=== PATIENT | male | born 1935 | race Caucasian/White ===

== ENCOUNTER → 2018-02-13 | Outpatient (REF) | payer MEDICARE ==
[2018-02-13 18:29] LABS: FOLATE 7.9 NG/ML; VITAMIN B12 LEVEL 1087 PG/ML
[2018-02-16 14:35] LABS: Methylmalonic Acid 154 nmol/L (0-378)
== END ==
LOC: M LAB REF 18:02
DX: D51.9 Vitamin B12 deficiency anemia, unspecified (principal)
CPT/HCPCS: 82746

== ENCOUNTER → 2019-08-22 | Outpatient (REF) | payer MEDICARE ==
[~2019-08-22] MED LIST: AMLO1TAB24 PO; ATOR1TAB21 PO; B-12100021 PO; FERR1TAB8 PO; FINA5TAB2 PO; FLOM0.4C39 PO; GABA-282 PO; GLIP10TA PO; MOM30SS2 PO; NOVOINJ SC; NYST1CRE15 TOP; OMEP10CASR PO; PYRI25TA3 PO; TRAM50TA2 PO; TRUL0.5I SC; VITDDR GT; ZEST1TAB2 PO
== END ==
LOC: M LAB REF 11:11
PROVIDERS: ATTEND Dermatology
DX: C44.311 Basal cell carcinoma of skin of nose (principal)

== ENCOUNTER 2019-12-13 09:49 | Emergency (ER) | payer MEDICARE ==
[2019-12-13] MEDS ORDERED: FINA5TAB2 PO (10:32)
[2019-12-13] MEDS ORDERED: GLIP10TA PO (10:32)
[2019-12-13] MEDS ORDERED: GABA-843 PO (10:32)
[2019-12-13] MEDS ORDERED: B-12100021 PO (10:32)
[2019-12-13] MEDS ORDERED: ATOR1TAB21 PO (10:32)
[2019-12-13] MEDS ORDERED: MOM30SS2 PO (10:32)
[2019-12-13] MEDS ORDERED: FERR1TAB8 PO (10:32)
[2019-12-13] MEDS ORDERED: AMLO1TAB24 PO (10:32)
[2019-12-13] MEDS ORDERED: VITDDR GT (10:32)
--- NOTE | 2019-12-13 11:11 | REPVR ---
PROCEDURE INFORMATION: Exam: XR Chest, 1 View Exam date and time: 12/13/2019 10:54 AM Age: 84 years old Clinical indication: Device placement; Patient HX: Traumatic removal of right side PICC line. ER physician questioning any remaining catheter in place. ; Additional info: PICC line traumatic removal. TECHNIQUE: Imaging protocol: XR of the chest Views: 1 view. COMPARISON: No relevant prior studies available. FINDINGS: Tubes, catheters and devices: No retained catheter fragment is seen at the chest. Lungs: No pulmonary consolidation or edema. Multiple micronodular opacities of the bilateral lower lungs. Multiple calcified pulmonary nodules consistent with benign remote granulomas. Pleural space: The left lateral costophrenic angle is not imaged. No evident pleural effusion. No evident pneumothorax. Heart/Mediastinum: Heart size is within normal limits. Vasculature: Tortuous thoracic aorta. Aortic atherosclerotic calcification. Bones/joints: Right glenohumeral and acromioclavicular osteoarthritis. Other findings: The right upper extremity is incompletely imaged. IMPRESSION: 1. No retained catheter fragment is seen at the chest. Chest CT could be considered for more sensitive evaluation. 2. Nonspecific bilateral lower lung micronodules. Interstitial lung disease or pulmonary infection are considerations. This could be further evaluated with chest CT. Electronically signed by: Salvatore Ruiz On 12/13/2019 11:11:00 AM
[2019-12-13] MEDS ORDERED: TRAM50TA2 PO (11:19)
[2019-12-13] MEDS ORDERED: NYST1CRE15 TOP (11:19)
[2019-12-13] MEDS ORDERED: OMEP10CASR PO (11:19)
[2019-12-13] MEDS ORDERED: FLOM0.4C39 PO (11:19)
[2019-12-13] MEDS ORDERED: ZEST1TAB2 PO (11:19)
[2019-12-13] MEDS ORDERED: NOVOINJ SC (11:19)
[2019-12-13] MEDS ORDERED: TRUL0.5I SC (11:19)
[2019-12-13] MEDS ORDERED: PYRI25TA3 PO (11:19)
[2019-12-13 12:34] VITALS: BP 140/71
--- NOTE | 2019-12-14 14:26 | ED PDOC ---
Post-Departure Follow-Up dr saleem faxed formal report of cxr for fu Moi Blount MD Dec 14, 2019 14:26
== END 2019-12-13 12:38 | disposition home or self-care (01) ==
LOC: M ED 09:49
DX: T82.898A Other specified complication of vascular prosthetic devices, implants and grafts, initial encounter (principal); X58.XXXA Exposure to other specified factors, initial encounter; Y92.89 Other specified places as the place of occurrence of the external cause; E11.9 Type 2 diabetes mellitus without complications; E03.9 Hypothyroidism, unspecified; K21.9 Gastro-esophageal reflux disease without esophagitis; M10.9 Gout, unspecified; Z86.14 Personal history of Methicillin resistant Staphylococcus aureus infection; Z79.899 Other long term (current) drug therapy; Z79.4 Long term (current) use of insulin

== ENCOUNTER → 2020-10-21 | Outpatient (REF) | payer MEDICARE | LOC: M LAB REF 17:18 | PROVIDERS: ATTEND Internal Medicine Nephrology | DX: N18.31 Chronic kidney disease, stage 3a (principal) ==

== ENCOUNTER → 2021-05-17 | Outpatient (REF) | payer MEDICARE | LOC: M LAB REF 16:44 | PROVIDERS: ATTEND Nurse Practitioner Family | DX: N18.31 Chronic kidney disease, stage 3a (principal) ==

== ENCOUNTER → 2021-12-02 | Outpatient (CLI) | payer MEDICARE ==
[2021-12-02 13:10] LABS: CREATININE FOR GFR 2.1 MG/DL (0.70-1.30)
== END ==
LOC: M LAB 11:39
PROVIDERS: ATTEND Physician Assistant Medical
DX: R22.1 Localized swelling, mass and lump, neck (principal)

== ENCOUNTER → 2021-12-15 | Outpatient (CLI) | payer MEDICARE | LOC: M RAD 09:59 | PROVIDERS: ATTEND Physician Assistant Medical | DX: R22.1 Localized swelling, mass and lump, neck (principal) ==

== ENCOUNTER → 2022-06-23 | Outpatient (REF) | payer MEDICARE | LOC: M LAB REF 17:10 | PROVIDERS: ATTEND Nurse Practitioner Family | DX: I50.9 Heart failure, unspecified (principal) ==